=== PATIENT | female | born 1975 | race Caucasian/White ===

== ENCOUNTER 2022-10-29 08:48 | Emergency (ER) | payer OTHER ==
[~2022-10-29] VITALS: Ht 162.6 cm; Wt 54.4 kg
[2022-10-29 08:57] VITALS: BP_SYST 130
--- NOTE | 2022-10-29 09:00 | NUR ---
DR. BAILEY AT BEDSIDE TO ASSESS PT.
--- NOTE | 2022-10-29 09:00 | NUR ---
PT BIBS FOR C/O GLASS IN RIGHT FOOT. PT KICKED A PIECE OF GLASS AND STATES SHE HAS SOME IN HER FOOT, SMALL RIGHT FOOT PUNCTURE SITE NOTED.
--- NOTE | 2022-10-29 09:16 | NUR ---
PT RECEIVING XRAY RIGHT FOOT AT THIS TIME.
--- NOTE | 2022-10-29 10:06 | NUR ---
DR. BAILEY AT BEDSIDE TO ASSESS POC.
--- NOTE | 2022-10-29 10:43 | NUR ---
COVID SAMPLE OBTAINED AND TAKEN TO LAB.
[2022-10-29 10:49] VITALS: BP_SYST 127
[2022-10-29 11:15] LABS: BASOPHILS # (AUTO) 0.1 K/uL (0.0-0.2); BASOPHILS % (AUTO) 0.8 % (0.0-2.0); EOSINOPHILS # (AUTO) 0.1 K/uL (0.0-0.4); EOSINOPHILS % (AUTO) 1.2 % (0.0-4.0); HEMATOCRIT 40.5 % (36-48); HEMOGLOBIN 13.6 g/dL (12.0-16.0); LYMPHOCYTES # (AUTO) 1.5 K/uL (1.0-5.5); LYMPHOCYTES % (AUTO) 21.5 % (20.5-51.5); MEAN CORPUSCULAR HEMOGLOBIN 32 pg (27-31); MEAN CORPUSCULAR HGB CONC 34 % (32-36); MEAN CORPUSCULAR VOLUME 96 fL (79.0-98.0); MONOCYTES # (AUTO) 0.5 K/uL (0.0-1.0); MONOCYTES % (AUTO) 7.3 % (1.7-9.3); NEUTROPHILS # (AUTO) 4.8 K/uL (1.8-7.7); NEUTROPHILS % (AUTO) 69.2 % (40.0-70.0); PLATELET COUNT (AUTO) 241 K/uL (130-430); RED BLOOD CELL COUNT(AUTO) 4.23 MIL/uL (4.2-6.2); RED CELL DISTRIBUTION WIDTH 12.6 % (9.0-15.0)
[2022-10-29 11:41] LABS: CALCIUM 9.5 mg/dL (8.4-11.0); CREATININE 0.62 mg/dL (0.55-1.30)
[2022-10-29 11:58] LABS: INR 1.1 (0.8-1.2); PROTHROMBIN TIME 11.9 SECS (9.5-12.5)
[2022-10-29 11:59] LABS: ALBUMIN 4.4 g/dL (3.4-4.8); TOTAL BILIRUBIN 0.9 mg/dL (0.0-1.0)
[2022-10-29] MEDS ORDERED: KETAMINE HCL 500 MG/10 ML VIAL IVP ONE (12:00)
[2022-10-29 12:01] LABS: BILIRUBIN,URINE NEGATIVE (NEGATIVE); BLOOD, URINE NEGATIVE (NEGATIVE); CLARITY/URINE CLEAR (CLEAR); COLOR,URINE YELLOW (YELLOW); GLUCOSE,URINE NEGATIVE (NEGATIVE); KETONES,URINE NEGATIVE (NEGATIVE); LEUKOCYTE ESTERASE ,URINE NEGATIVE (NEGATIVE); NITRITE, URINE NEGATIVE (NEGATIVE); PH,URINE 7.5 (5.0-8.0); PROTEIN URINE NEGATIVE (NEGATIVE); UROBILINOGEN,URINE 0.2 (0.2-1.0)
--- NOTE | 2022-10-29 12:04 | NUR ---
DR. LOU AND DR. BAILEY AT BEDSIDE PT PREFORM RIGHT FOOT REMOVAL OF FOREIGN OBJECT WITH CONSCIOUS SEDATION. ARLET DELGADO AT BEDSIDE.
--- NOTE | 2022-10-29 13:30 | NUR ---
DR. BAILEY AT BEDSIDE TO DISCUSS POC. PT TO DISCHARGE TODAY.
--- NOTE | 2022-10-29 13:35 | NUR ---
PROCEDURE COMPLETED, RIGHT FOOT INCISION CLOSED DERMABOND AND COVERED WITH OCCLUSIVE DRESSING.
--- NOTE | 2022-10-29 15:42 | NUR ---
Patient given written and verbal discharge instructions and verbalizes understanding. ER Dr. Vasquez DEL VALLE discussed with patient the results and treatment provided. Patient in stable condition. ID arm band removed. IV catheter removed intact and dressing applied, no active bleeding. Patient educated on pain management and to follow up with PMD. Pain Scale 0/10. Opportunity for questions provided and answered. Medication side effect fact sheet provided.
== END 2022-10-29 15:42 | disposition home or self-care (01) ==
LOC: SED 08:48
DX: S90.851A Superficial foreign body, right foot, initial encounter (principal); Z79.899 Other long term (current) drug therapy; Z20.822 Contact with and (suspected) exposure to COVID-19; W25.XXXA Contact with sharp glass, initial encounter; Y93.89 Activity, other specified; Y92.89 Other specified places as the place of occurrence of the external cause; Y99.8 Other external cause status
CPT/HCPCS: 36415; 71045; 80053; 81003; 81025; 85025; 85610-TC; 85730-TC; 93005; 99285